=== PATIENT | female | born 1995 | race Caucasian/White ===

== ENCOUNTER → 2017-03-05 | Outpatient (CLI) | payer OTHER ==
[~2017-03-05] MED LIST: BCP
--- NOTE | 2017-03-05 19:54 | Diagnostic Imaging Report ---
Ultrasound of the chest. INDICATION: Pectus excavatum status post Kendal bar placement 11 month ago. Swelling over the surgical site. FINDINGS: Area over the surgical incision appear unremarkable with hyperechoic linear area seen probably representing the fixating bar. No fluid collection is identified. IMPRESSION: No fluid collection at the surgical site. Dictated by: Dictated on workstation # [id number]
== END ==
LOC: RAD 12:45
PROVIDERS: ATTEND Nurse Practitioner Family
DX: R22.2 Localized swelling, mass and lump, trunk (principal); Z98.890 Other specified postprocedural states
CPT/HCPCS: 76604